=== PATIENT | female | born 1960 | race Caucasian/White ===

== ENCOUNTER 2018-04-03 11:50 | Inpatient (IN) ==
[2018-04-03] MEDS ORDERED: *HR* FentaNYL (PF) 100 MCG/2 ML VIAL ONE (12:14)
[2018-04-03] MEDS ORDERED: *HR* Propofol 200 MG/20 ML VIAL IVP ONE (12:14)
[2018-04-03] MEDS ORDERED: *HR* Midazolam HCl 2 MG/2 ML VIAL ONE (12:14)
[2018-04-03] MEDS ORDERED: *HR* Phenylephrine 10 MG/ML VIAL ONE (12:16)
[2018-04-03] MEDS ORDERED: Lidocaine -MPF 4% 5 ML AMPUL ONE (12:16)
[2018-04-03] MEDS ORDERED: Dexamethasone 4 MG/ML VIAL ONE (12:16)
[2018-04-03] MEDS ORDERED: Ondansetron 4 MG/2 ML VIAL ONE (12:16)
[2018-04-03] MEDS ORDERED: Lidocaine -MPF 2% 2 ML VIAL ONE (12:16)
[2018-04-03] MEDS ORDERED: *HR* Succinylcholine 200 MG/10 ML VIAL IVP ONE (12:16)
[2018-04-03] MEDS ORDERED: *HR* Heparin 5,000 UNIT/ML VIAL ONE ×2 (12:17→14:33)
--- NOTE | 2018-04-03 12:17 | Anesthesia Evaluation PreOp ---
Date of Encounter: 04/03/18 Time of Encounter: 12:31 - Past History Planned Operation: L-CEA Cardiac History: HTN, Hyperlipidemia Pulmonary History: Smoker (<1ppd, previously >1ppd), Asthma, COPD (Home O2 prn) , KENZIE Dx GYMNASTIC TEACHER History: Seizures (L-arm/L-leg numbness associated with L-hand swelling & "drawing up" for >5years - Negative seizure workup from Neurology per Pt. [?? possiby TIA vs. MS??].), TIA, Other (Anxiety/Depression) Other Medical History: Diabetes Type II, GERD Anesthesia History: No Prior Anesthetic Complications, Past Anesthesia (Marry, Appy, Tubal, Basal Cell Ca,GENEVA) Alcohol Use: unknown Drug use: unknown Medications and Allergies Aspirin [Lo-Dose Aspirin EC] 81 mg PO DAILY 04/03/18 [History] Cholestyramine [Cholestyramine] 1 pack PO DAILY 04/03/18 [History] Lisinopril [Zestril] 20 mg PO DAILY 04/03/18 [History] SitaGLIPtin [Januvia] 25 mg PO DAILY 04/03/18 [History] 3 Allergy/AdvReac Type Severity Reaction Status Date / Time Iodinated Contrast- Oral and Allergy See Verified 04/03/18 12:27 IV Dye Comments sulfamethoxazole Allergy Swelling Verified 04/03/18 12:27 [From Bactrim] of Lip/Tongue/Throat trimethoprim [From Bactrim] Allergy Swelling Verified 04/03/18 12:27 of Lip/Tongue/Throat - Meds/Allergy Pre-op Review Medications Reviewed: Yes Allergies Reviewed: Yes Beta Blockers on Current Med List: No Anesthesia Results - Labs Laboratory Tests 04/02/18 04/02/18 04/02/18 08:54 08:54 08:54 WBC 5.7 Hgb 15.6 H Hct 45.9 H Plt Count 230 PT 11.1 INR 1.0 APTT 39.0 H Sodium 136 Potassium 4.0 Chloride 103 Carbon Dioxide 26 BUN 13 Creatinine 0.69 Est GFR (Non-Af Amer) > 60 Glucose 197 H Est Mean Plasma Glucose Hemoglobin A1c 04/02/18 08:54 WBC Hgb Hct Plt Count PT INR APTT Sodium Potassium Chloride Carbon Dioxide BUN Creatinine Est GFR (Non-Af Amer) Glucose Est Mean Plasma Glucose 183 Hemoglobin A1c 8.0 H - Imaging EKG: image reviewed (67bpm - SINUS RHYTHM Electronically Signed On 04-03-2018 7: 00:14 EDT by Sylvia Mills) Additional studies: Carotid Dopplers 03/20/2018 Findings: Right proximal ICA has a moderate, 40-59% stenosis.Findings: Left proximal ICA has a critical, 80-99% stenosis. Anesthesia Exam O2 Sat Height 1.65 m Height 1.65 m Weight 63.503 kg Weight 63.503 kg O2 Sat by Pulse Oximetry 96 Vital Signs Temp Pulse Resp BP Pulse Ox 98.7 F 69 18 122/81 96 04/03/18 12:22 04/03/18 12:22 04/03/18 12:22 04/03/18 12:22 04/03/18 12:22 Height: 5'5" Weight: 145# BMI = 23 NPO (# of Hours): MNOc - HEENT Pupil (Motor): Pupils equal, EOMI Mallampati: II Teeth: Missing, Edentulous (upper), Poor dentition Oral Opening: Greater than 3 - GYMNASTIC TEACHER LOC: Oriented GYMNASTIC TEACHER Motor: Normal RUE, Normal LUE, Normal RLE, Normal LLE, Normal Face GYMNASTIC TEACHER Sensory: Normal: RUE, LUE, RLE, LLE, Face - Cardiac Rhythm: Regular Murmur: None - Pulmonary Breath Sounds: bilateral Clear Respiratory Effort: Symmetrical Anesthesia Assess/Plan ASA Score: 3 (recurrent TIAs, COPD, DM, HTNm KENZIE, RA, Asthma, Smoker) Modified Bernadette Scale for Level of Consciousness: Cooperative, oriented, and tranquil Anesthetic Plan: General Monitoring Plan: Standard Monitors, A-Line Recovery Plan: PACU Anes Supervising Prov Stmt: Pt seen/evaluated, R&B Discussed, questions answered and consent obtained. Angus Cummings MD
[2018-04-03] MEDS ORDERED: Water for inj. (sterile) 10 ML IV ONE (12:18)
[2018-04-03] MEDS ORDERED: Heparin 1,000 UNITS/500 mL 500 ML ONE (12:34)
[2018-04-03] MEDS ORDERED: *HR* Remifentanil 2 MG VIAL IVP ONE (12:34)
[2018-04-03] MEDS ORDERED: CeFAZolin Syr 2,000MG/20 ML 2,000 MG/20 ML SYRINGE IVPB ONE (12:36)
[2018-04-03] MEDS ORDERED: Albuterol 2.5 MG/3 ML NEBULIZER IH ONE (12:37)
[2018-04-03] MEDS ORDERED: Heparin 1,000 UNITS/500 mL 1,000 ML ONE (12:40)
[2018-04-03] MEDS ORDERED: Bupivacaine-MPF 0.25% 10 ML VIAL ONE (12:40)
[2018-04-03] MEDS ORDERED: Lidocaine 1% 20 ML MDV ONE (12:40)
--- NOTE | 2018-04-03 12:40 | History & Physical Report ---
Date of Encounter: 04/03/18 Time of Encounter: 12:35 24 Hour HP Update - Instructions Instructions: If the History and Physical is less than 30 days old and was completed prior to A.M. admission and or procedure and has NOT been updated on calendar day of procedure please complete this update prior to performing procedure. - Update Patient reports changes in Medical Condition: No Changes in examination, assessment, or condition: No Changes in Medication: No Preop tests/diagnostics Reviewed: Yes Surgery Remains Indicated: Yes Consent for Planned Operative Procedure(s) Verified: Yes - Pre-Operative Checklist Preoperative Checklist Indicated: Yes Prophylactic Antibiotic Ordered: Yes (Vancomycin due to risk of MRSA) Home Medications Include Beta Paige: No Beta Paige Taken Today (Day of Surgery): No Beta Paige Taken Yesterday (Day Prior to Surgery): No Is VTE Prophylaxis Indicated?: Yes
[2018-04-03] MEDS ORDERED: Ringers Solution, Lactated 1,000 ML IVC SCH (12:45)
[2018-04-03] MEDS ORDERED: Pregabalin 75 MG CAPSULE PO ONE (12:51)
[2018-04-03] MEDS ORDERED: Acetaminophen IV 1,000 MG/100 ML INFUS..BTL IVPB ONE (12:51)
[2018-04-03] MEDS ORDERED: Famotidine 20 MG/2 ML VIAL IVP ONE (12:51)
[2018-04-03] MEDS ORDERED: Vancomycin 1,000 MG, Sodium Chloride IRRigation 1,000 ML IR ONE (13:20)
[2018-04-03] MEDS ORDERED: Lacri-Lube 3.5 GM TUBE ONE (13:55)
[2018-04-03] MEDS ORDERED: EPHEDrine 50 MG/ML VIAL ONE (13:57)
[2018-04-03] MEDS ORDERED: Dexamethasone 4 MG/ML VIAL IVP ONE (14:26)
[2018-04-03] MEDS ORDERED: *HR* Labetalol 20 MG/4 ML SYRINGE IVP PRN ×2 (14:26→17:43)
[2018-04-03] MEDS ORDERED: *HR* Morphine 2 MG/ML SYRINGE IVP PRN (14:26)
[2018-04-03] MEDS ORDERED: Ondansetron 4 MG/2 ML VIAL IVP ONE (14:26)
[2018-04-03] MEDS ORDERED: Neostigmine Methylsulfate 3 MG/3 ML SYRINGE ONE (15:52)
--- NOTE | 2018-04-03 16:17 | Operative Note ---
Date of procedure: 04/03/18 Pre-op diagnosis: Symptomatic 80-99% left internal carotid artery stenosis Post-op diagnosis: same Procedure: Left carotid endarterectomy with Hemashield patch angioplasty. Complications: None Anesthesia: GETA Surgeon: Patrick Tovar Was there an melter assistant present: No Estimated blood loss (cc): 50 Specimen: Left carotid plaque Condition: stable Disposition: PACU Procedure in Detail: Procedure: The patient was identified in the preoperative area. The risks, benefits, and alternatives of the procedure were discussed and all questions were answered. The patient was then taken to the operating room and placed in supine position on the operating table. After the induction of general endotracheal anesthesia, the patient was cleaned and draped in normal sterile fashion. A longitudinal incision was made anterior to the left sternocleidomastoid muscle. Hemostasis was obtained via electrocautery. Through a process of blunt , sharp, and electrocautery dissection, the platysma was traversed and the jugular vein was identified. The facial vein was dissected, clamped, divided and ligated with a 2-0 silk suture ligature. The jugular vein was retracted to expose the carotid bifurcation. The patient received 3000 units of heparin intravenously at this time. Proximal dissection of the common and external carotid arteries were performed circumferentially. Dissection of the internal carotid was performed circumferentially. Vessels loops were passed around the internal and external carotid and an umbilical tape was passed from the common carotid artery. The patient received additional 2000 units of heparin intravenously. Additional heparin was given throughout the case to maintain adequate anticoagulation. After waiting adequate time for the heparin to circulate, the vessels were occluded and a longitudinal arteriotomy was made into the common carotid artery and extended into the internal carotid beyond the plaque. The plaque was long, extended distally and was heavily calcified. Vigorous pulsatile retrograde flow was noted from the internal carotid artery upon release of the vessel loop. Due to the rapid pulsatile retrograde flow, no shunt was placed. A dental [place] was then used to perform a standard endarterectomy. Proximal and distal endpoints were inspected. No elevated flaps were noted. Additional heparin was given throughout the procedure to maintain adequate anticoagulation. A Hemashield patch was cut to fit the defect and sutured in place with running 6 -0 Prolene. Prior to completing the closure, each vessel was flushed and then reoccluded. Heparinized saline was infused into the lumen. The patch was completed. Flow was restored in the external carotid artery, followed the common carotid artery, lastly the internal carotid artery was opened. A low resistance arterialized signal was present within the internal carotid artery beyond the patch. Thrombin and Gelfoam were used to aid in hemostasis. Meticulous hemostasis was obtained throughout the wound with electrocautery. Platelet rich and platelet poor plasma were infused into the wounds. The sternocleidomastoid was reapproximated with interrupted 3-0 Vicryl. Platelet rich and platelet poor plasma were infused into the wound. A TLS drain was brought through a separate stab incision and sutured in place with 0 silk suture. The platysma was reapproximated with running 3-0 Vicryl. Local anesthetic was infused in the skin. A 3-0 Monocryl was used to reapproximate the skin. A sterile dressing was applied. The patient was extubated, taken to the recovery room in stable condition.
--- NOTE | 2018-04-03 17:21 | Anesthesia Evaluation Post Op ---
Date of Encounter: 04/03/18 Time of Encounter: 17:20 - Vital Signs Vital Signs: Vital Signs/O2 Sat/Glucose, Most Current Temp Pulse Resp BP Pulse Ox 04/03/18 17:09 98.1 F 60 16 98/59 97 04/03/18 16:58 60 16 98/59 97 04/03/18 16:48 98.1 F 60 16 108/62 97 04/03/18 16:38 60 16 111/61 97 04/03/18 16:28 63 16 117/72 97 04/03/18 16:18 98.4 F 79 16 140/90 93 - Lungs Lungs: Clear Ascult./Percussion - Airway Airway: Non-obstructed - Cardiovascular Regular Rate - Mental Status Mental Status: Alert & Oriented, Answers Appropriately - Pain Pain Scale: 1 - Nausea Vomiting Nausea Vomiting: Not Present - Hydration Hydration: Ice chips - Discharge PostOp Status: Transfer Patient to floor
[2018-04-03] MEDS ORDERED: Naloxone 0.4 MG/ML INJ IVP PRN (17:43)
[2018-04-03] MEDS ORDERED: Dextrose Gel 15 GM/37.5 ML TUBE PO PRN ×2 (17:43)
[2018-04-03] MEDS ORDERED: OXYCODONE Oral CONC 10 MG/0.5 ML ORAL.SYG SL PRN ×2 (17:43)
[2018-04-03] MEDS ORDERED: Ondansetron 4 MG/2 ML VIAL IVP PRN (17:43)
[2018-04-03] MEDS ORDERED: *HR* HYDROcodone/Acet 5/325 mg TABLET PO PRN (17:43)
[2018-04-03] MEDS ORDERED: D5% in Water 1,000 ML IVC PRN (17:43)
[2018-04-03] MEDS ORDERED: Acetaminophen 325 MG TABLET PO PRN (17:43)
[2018-04-03] MEDS ORDERED: *HR* Dextrose 50 % in Water (Syg) 50 ML SYRINGE IVP PRN (17:43)
[2018-04-03] MEDS: *HR* Metoprolol 5 MG/5 ML VIAL IVP SCH ×2 (19:20→23:40)
[2018-04-03] MEDS: Insulin LISPRO 300 UNITS/3 ML VIAL SQ SCH (19:20)
[2018-04-03] MEDS: CeFAZolin Pre 2,000 MG/100 ML 2,000 MG/100 ML BAG IVPB SCH (20:17)
[2018-04-03] MEDS: *HR* OxyCODONE Immed Rel 5 MG TABLET PO PRN (20:36)
[2018-04-03] MEDS ORDERED: Insulin LISPRO 300 UNITS/3 ML VIAL SQ SCH (21:00)
[2018-04-04] MEDS ORDERED: Vancomycin 0 MG in D5% in Water 250 ML IVPB ONE (00:30)
[2018-04-04] MEDS: CeFAZolin Pre 2,000 MG/100 ML 2,000 MG/100 ML BAG IVPB SCH ×2 (04:23→11:20)
[2018-04-04] MEDS: *HR* OxyCODONE Immed Rel 5 MG TABLET PO PRN (04:27)
[2018-04-04] MEDS: *HR* Metoprolol 5 MG/5 ML VIAL IVP SCH (05:54)
[2018-04-04] MEDS ORDERED: *HR* Heparin 5,000 UNIT/ML VIAL SQ SCH ×2 (06:00)
[2018-04-04] MEDS: Cholestyramine 4 GM POWD.PACK PO SCH ×2 (07:56→08:17)
[2018-04-04] MEDS: Insulin LISPRO 300 UNITS/3 ML VIAL SQ SCH (08:02)
[2018-04-04] MEDS ORDERED: Lisinopril 20 MG TABLET PO SCH (09:00)
[2018-04-04] MEDS ORDERED: Aspirin Enteric Coated 81 MG Tablet PO SCH (09:00)
--- NOTE | 2018-04-04 11:27 | Discharge Summary ---
Orders not resulted at time of discharge: Pending orders 04/03/18 13:07 Red Blood Cells [BBK] Routine Date of Encounter: 04/04/18 Time of Encounter: 11:05 - Discharge Diagnosis (1) Carotid stenosis, left Priority: Primary Status: Chronic Comments: Patient is postoperative day #1 after left carotid artery endarterectomy. Her incision is healing well. She is neurologically intact. She will be discharged today. (2) Panlobular emphysema Priority: Secondary Status: Chronic (3) Diabetes mellitus Priority: Secondary Status: Chronic Qualifiers: Diabetes mellitus type: type 2 Diabetes mellitus group home insulin use: without ad terminal makeup operator use Diabetes mellitus complication status: with circulatory complication Diabetes mellitus complication detail: with other circulatory complications Qualified Code(s): E11.59 - Type 2 diabetes mellitus with other circulatory complications (4) Essential hypertension Priority: Secondary Status: Acute (5) Tobacco abuse Priority: Secondary Status: Acute - Hospital Course Hospital course: Ms. Starr is a 57 year old female with history of hypertension, hyperlipidemia , diabetes, COPD, tobacco abuse was found have a symptomatic 80-99% left internal carotid artery stenosis.. She underwent a left carotid endarterectomy and tolerated the procedure well. She was discharged in stable condition on postoperative day #1 without complication. Time spent discussing smoking cessation with patient: 3 to 10 minutes - Time Spent with Patient Total time spent providing and/or coordinating discharge services: - Discharge Medications Prescriptions: OxyCODONE/APAP 5/325 [Percocet 5/325 MG] 1 each PO Q6HR PRN 5 Days #20 tablet PRN Reason: Postoperative pain Home Medications: Aspirin [Lo-Dose Aspirin EC] 81 mg PO DAILY 04/03/18 [History] Cholestyramine 1 pack PO DAILY 04/03/18 [History] Lisinopril [Zestril] 20 mg PO DAILY 04/03/18 [History] SitaGLIPtin [Januvia] 25 mg PO DAILY 04/03/18 [History] OxyCODONE/APAP 5/325 [Percocet 5/325 MG] 1 each PO Q6HR PRN 5 Days #20 tablet [Rx] Allergies/Adverse Reactions: 3 Allergy/AdvReac Type Severity Reaction Status Date / Time Iodinated Contrast- Oral and Allergy See Verified 04/03/18 12:27 IV Dye Comments sulfamethoxazole Allergy Swelling Verified 04/03/18 12:27 [From Bactrim] of Lip/Tongue/Throat trimethoprim [From Bactrim] Allergy Swelling Verified 04/03/18 12:27 of Lip/Tongue/Throat Date of admission: 04/03/18 Primary care physician: Brandy Kaiser CNP Procedure(s) Performed: Left carotid endarterectomy Discharging clinician: Patrick Tovar Anticipated date of discharge: 04/04/18 Exam Vital Signs, Last 4 Hours Temp Pulse Resp BP Pulse Ox 04/04/18 07:29 97.8 F 51 14 76/43 93 General: Present: Conversant, No Apparent Distress HEENT: Present: Pupils equal Neck: Present: Other (Incision clean dry and intact without erythema or drainage.) Cardiac: Present: Reg Rate and Rhythm Lungs: Present: Normal Breath Sounds Neuro: Present: Alert and responsive, No focal deficits noted, Motor nerves grossly intact, Sensory nerves grossly intact Abdomen: Present: Soft Vascular: Present: Normal capillary refill Skin: Present: No rashes noted on visualized skin - Patient Status Disposition: Home, Self-Care Condition: Good Overall status at discharge: patient is back to baseline - Discharge Instructions Instructions: Oxycodone/Acetaminophen (By mouth), Carotid Endarterectomy (DC) Follow Up With: Patrick Tovar MD [Partnered Physician] - 05/12/18 2:20 pm Brandy Kaiser CNP [Primary Care Provider] - 04/07/18 1:00 pm Additional Instructions: May shower on 04/05/2018. Wash wound gently and pat to dry. Applied dry gauze to wound daily for 7 days. No driving for 7 days. Call [phone] with questions or concerns. - Diet and Activity Activity: increase activity as tolerated Diet: advance to your usual diet - VTE Documentation of Mechanical Device: Intermittent pneumatic compression device
[2018-04-04 12:03] VITALS: BP 84/60
== END 2018-04-04 12:33 | disposition home or self-care (01) | DRG 39 ==
LOC: SAMDAY 11:50 → 2ANU 12:44 → 2NNU 17:24 → SAMDAY 04-04 13:24
PROVIDERS: ADMIT Surgery; ATTEND Surgery